=== PATIENT | female | born 1945 | race Caucasian/White ===

== ENCOUNTER 2016-10-24 16:39 | Inpatient (IN) | payer MEDICARE, OTHER ==
[2016-10-24] MEDS ORDERED: SODIUM CHLORIDE 0.9% 1,000 ML IV ONE (17:35)
--- NOTE | 2016-10-24 18:10 | XR ---
EXAMINATION TYPE: XR chest 2V DATE OF EXAM: 10/24/2016 6:07 PM COMPARISON: 06/24/2014 INDICATION: Mental status change unresponsive TECHNIQUE: Single frontal view of the chest is obtained. FINDINGS: The heart size is normal. The pulmonary vasculature is normal. The lungs are clear. IMPRESSION: 1. No acute pulmonary process.
[2016-10-24 18:17] LABS: ALT 21 U/L (9-52); AST 26 U/L (14-36); Alkaline Phosphatase 118 U/L (38-126); Anion Gap 11 mmol/L; Blood Urea Nitrogen 7 mg/dL (7-17); Calcium 8.4 mg/dL (8.4-10.2); Carbon Dioxide 26 mmol/L (22-30); Chloride 102 mmol/L (98-107); Glucose 233 mg/dL (74-99); Non-African American GFR(MDRD) >60 (>60 ml/min/1.73 sqM); Potassium 3.8 mmol/L (3.5-5.1); Sodium 139 mmol/L (137-145); Total Bilirubin 0.6 mg/dL (0.2-1.3); Total Protein 6.5 g/dL (6.3-8.2)
[2016-10-24 18:42] LABS: CH 32.2; CHCM 34.2; HDW 2.65; HGB 13.6 gm/dL (11.4-16.0); MCH 31.3 pg (25.0-35.0); MCHC 33.1 g/dL (31.0-37.0); MCV 94.7 fL (80.0-100.0); RBC 4.33 m/uL (3.80-5.40); WBC 7.9 k/uL (3.8-10.6); WBC (Perox) 7.19
[2016-10-24 19:29] LABS: Add Differential Manual Differential
[2016-10-24 19:31] LABS: Manual Review Performed; Nucleated Red Blood Cells 0 /100 WBC (0-0); RBC Morphology Normal; Total Cells Counted 100
[2016-10-24] MEDS ORDERED: LORazepam 2 MG/ML SYRINGE IV STA (20:55)
[2016-10-24] MEDS ORDERED: LORazepam 2 MG/ML SYRINGE IM STA (21:03)
[2016-10-24 22:06] LABS: Amorphous Sediment,Urine Rare /hpf; Appearance,Urine Cloudy (Clear); Bilirubin,Urine Negative (Negative); Glucose,Urine (UA) 3+ (Negative); Ketones,Urine Negative (Negative); Leukocyte Esterase,Urine Large (Negative); Mucus,Urine Rare /hpf; Nitrite,Urine Negative (Negative); Particle Count 8908; Protein,Urine Trace (Negative); Specific Gravity,Urine 1.011 (1.001-1.035); Squamous Epithelial Cell,Urine 6 /hpf (0-4); UA Billing (MACRO vs. MICRO) MICRO; Urobilinogen,Urine <2.0 mg/dL (<2.0); WBC,Urine >182 /hpf (0-5)
[2016-10-25] MEDS ORDERED: NALOXONE 0.4 MG/ML 1 ML VIAL IV PRN (00:37)
[2016-10-25] MEDS ORDERED: KETOROLAC 30 MG/ML 1 ML VIAL IVP PRN (00:37)
[2016-10-25] MEDS ORDERED: ONDANSETRON 4 MG/2 ML VIAL IVP PRN (00:37)
--- NOTE | 2016-10-25 00:42 | ED ---
General Adult HPI - General Chief complaint: Urogenital Stated complaint: UTI Source: EMS Mode of arrival: EMS Limitations: language barrier - History of Present Illness Initial comments: 31-year-old female with a history of persistent urinary tract infection on IV antibiotics presenting from halfway for evaluation of persistent urinary tract infection as well as psych evaluation. She was found to have a urinary tract infection and was placed on IV Zosyn but recently she's been acting out pulling at any IV line that she has and refusing to eat or drink or take her medications. She had a PICC line in her arm pulled that out about a week ago. During the last week she has pulled out the 2 peripheral IV lines that she has been placed but after pulling out the most recent one the home as well as the patient's family decided that she needed be evaluated for psych behavior. She had a previous admission to geriatric psych in the past for similar type behavior and after discharge had marketed improvement. Home care worker states that although she's been on the IV antibiotic she continues to have mild dysuria although she has no fevers chills nausea vomiting abdominal pain. - Related Data Home Medications Medication Instructions Recorded Confirmed Aspirin 81 mg PO DAILY 05/03/14 10/24/16 Carvedilol [Coreg] 3.125 mg PO BID 10/24/16 10/24/16 Cholecalciferol [Vitamin D3] 2,000 unit PO DAILY 10/24/16 10/24/16 Donepezil HCl [Aricept] 5 mg PO DAILY 10/24/16 10/24/16 Escitalopram [Lexapro] 20 mg PO DAILY 10/24/16 10/24/16 Esomeprazole Magnesium [NexIUM] 20 mg PO Q48H 10/24/16 10/24/16 Ferrous Sulfate [Feosol] 325 mg PO BID 10/24/16 10/24/16 Insulin Aspart [NovoLOG] 5 unit SQ AC-TID 10/24/16 10/24/16 Insulin Aspart [NovoLOG] See Protocol SQ AC-TID 10/24/16 10/24/16 Insulin Detemir [Levemir] 10 unit SQ QAM 10/24/16 10/24/16 Ketoconazole 2% Cream [Nizoral 2%] 1 applic TOPICAL DAILY 10/24/16 10/24/16 LORazepam [Ativan] 1 mg PO Q8H PRN 10/24/16 10/24/16 Levothyroxine Sodium [Synthroid] 100 mcg PO DAILY 10/24/16 10/24/16 Lisinopril [Zestril] 10 mg PO DAILY 10/24/16 10/24/16 Memantine [Namenda] 10 mg PO BID 10/24/16 10/24/16 Piperacillin-Tazobactam [Zosyn] 2.25 gm IVPB Q6HR 10/24/16 10/24/16 QUEtiapine [SEROquel] 50 mg PO HS 10/24/16 10/24/16 amLODIPine [Norvasc] 10 mg PO DAILY 10/24/16 10/24/16 Allergies Allergy/AdvReac Type Severity Reaction Status Date / Time shellfish derived AdvReac swelling & Verified 10/24/16 17:14 numbness Sulfa (Sulfonamide AdvReac Swelling Verified 10/24/16 17:14 Antibiotics) Review of Systems ROS Statement: Those systems with pertinent positive or pertinent negative responses have been documented in the HPI. ROS Other: All systems not noted in ROS Statement are negative. Constitutional: Denies: fever, chills, weakness, weight change Eyes: Denies: eye pain, eye discharge, vision change ENT: Denies: ear pain, throat pain Respiratory: Denies: cough, dyspnea Cardiovascular: Denies: chest pain, palpitations Endocrine: Denies: fatigue, polydipsia, polyuria Gastrointestinal: Denies: abdominal pain, nausea, vomiting, diarrhea, constipation, hematemesis, melena, hematochezia Genitourinary: Reports: dysuria. Denies: urgency, frequency, hematuria, discharge Musculoskeletal: Denies: back pain, arthralgia, myalgia Skin: Denies: rash, lesions Neurological: Denies: headache, weakness Psychiatric: Reports: depression (per family), other (decrease PO intake and refusing to take her meds). Denies: anxiety, homicidal thoughts, suicidal thoughts Hematological/Lymphatic: Denies: easy bleeding, easy bruising Past Medical History Past Medical History: Heart Failure, Diabetes Mellitus, GERD/Reflux Additional Past Medical History / Comment(s): CHF, Alzheimers, renal failure, hypothyroid History of Any Multi-Drug Resistant Organisms: None Reported Past Surgical History: Hysterectomy Additional Past Surgical History / Comment(s): thyroid, complete hysterectomy, cataract removal and lens implant Past Psychological History: Anxiety Smoking Status: Former smoker Past Alcohol Use History: None Reported Additional Past Alcohol Use History / Comment(s): Patient is single and . 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 Past Drug Use History: None Reported - Past Family History Father Family Medical History: Congestive Heart Failure (CHF) ( from heart failure at an unknown age) Mother Family Medical History: Congestive Heart Failure (CHF) ( at age 89 from heart failure) Brother(s) Family Medical History: Chest Pain / Angina (Patient has 2 brothers one from coronary artery disease, patient also has 2 sisters and one is from unknown cause.) Son(s) Additional Family Medical History / Comment(s): Patient has 2 daughters that are living. And one son who from hanging himself. General Exam Limitations: language barrier General appearance: alert, in distress (crying on the exam bed for no apparent reason upon approaching the bed) Head exam: Present: atraumatic, normocephalic, normal inspection Eye exam: Present: normal appearance, PERRL, EOMI. Absent: scleral icterus, conjunctival injection, periorbital swelling ENT exam: Present: normal exam, mucous membranes moist Neck exam: Present: normal inspection. Absent: tenderness, meningismus, lymphadenopathy Respiratory exam: Present: normal lung sounds bilaterally. Absent: respiratory distress, wheezes, rales, rhonchi, stridor Cardiovascular Exam: Present: regular rate, normal rhythm, normal heart sounds. Absent: systolic murmur, diastolic murmur, rubs, gallop, clicks GI/Abdominal exam: Present: soft, normal bowel sounds. Absent: distended, tenderness, guarding, rebound, rigid Rectal exam: Present: deferred Extremities exam: Present: normal inspection, full ROM, normal capillary refill. Absent: tenderness, pedal edema, joint swelling, calf tenderness Back exam: Present: normal inspection Neurological exam: Present: alert, oriented X3, CN II-XII intact Psychiatric exam: Present: normal affect, normal mood Skin exam: Present: warm, dry, intact, normal color. Absent: rash Course Vital Signs 05/06/17 05/06/17 05/07/17 16:51 19:46 00:45 Temperature 98.5 F 98.2 F Pulse Rate 69 82 66 Respiratory 16 18 18 Rate Blood Pressure 172/83 179/86 131/63 O2 Sat by Pulse 95 95 95 Oximetry EKG Findings - EKG Comments: EKG Findings:: Normal sinus rhythm with a ventricular rate of 76, THEO 118, QRS 80, QT/QTC 398/447. There is also voltage criteria for LVH in aVL. Medical Decision Making - Medical Decision Making 71-year-old female presented for evaluation of recurrent last persistent urinary tract infection as well as psych evaluation. She has been on IV Zosyn for the last 7 days and was prescribed for a 12 day course. She is also been acting out in the home pulling out her PICC line and numerous other IV access and refusing to eat or take her by mouth meds. On physical examination the patient is uncooperative and refusing to answer most questions. Family states that she has had previous admissions to geriatric psych which provided significant improvement. On physical examination there are no other abnormalities outside of the behavioral issues. We'll workup and up and have patient seen by psych. Labs revealed a hyperglycemia as well as a plasma lactic acid of 2.5. Urine revealed a continued urinary tract infection and her toxicology showed barbiturates and benzos in her urine. Patient was cleared medically for psych evaluation. Psychiatric see her and agreed patient needed to be admitted for geriatric psych. All the facilities in the area are full and have no available beds. It was agreed that she would be admitted for medical treatment of urinary tract infection and Zosyn will be continued until primary attending can evaluate further. Dr. Owens accepted the admission and requested consult with psych. Admission order placed and bed request submitted. - Lab Data Result diagrams: 10/24/16 17:00 10/24/16 17:00 Lab Results 10/24/16 10/24/16 10/24/16 Range/Units 17:00 17:00 17:00 WBC 7.9 (3.8-10.6) k/uL RBC 4.33 (3.80-5.40) m/uL Hgb 13.6 (11.4-16.0) gm/dL Hct 41.0 (34.0-46.0) % MCV 94.7 (80.0-100.0) fL MCH 31.3 (25.0-35.0) pg MCHC 33.1 (31.0-37.0) g/dL RDW 14.0 (11.5-15.5) % Plt Count 308 (150-450) k/uL Neutrophils % (Manual) 77.0 % Lymphocytes % (Manual) 16.0 % Monocytes % (Manual) 4.0 % Eosinophils % (Manual) 3.0 % Neutrophils # (Manual) 6.1 (1.3-7.7) k/uL Lymphocytes # (Manual) 1.3 (1.0-4.8) k/uL Monocytes # (Manual) 0.3 (0-1.0) k/uL Eosinophils # (Manual) 0.2 (0-0.7) k/uL Nucleated RBCs 0 (0-0) /100 WBC Manual Slide Review Performed RBC Morphology Normal Sodium 139 (137-145) mmol/L Potassium 3.8 (3.5-5.1) mmol/L Chloride 102 (98-107) mmol/L Carbon Dioxide 26 (22-30) mmol/L Anion Gap 11 mmol/L BUN 7 (7-17) mg/dL Creatinine 0.80 (0.52-1.04) mg/dL Est GFR (MDRD) Af Amer >60 (>60 ml/min/1.73 sqM) Est GFR (MDRD) Non-Af >60 (>60 ml/min/1.73 sqM) Glucose 233 H (74-99) mg/dL Plasma Lactic Acid [place] 2.5 H* (0.7-2.0) mmol/L Calcium 8.4 (8.4-10.2) mg/dL Total Bilirubin 0.6 (0.2-1.3) mg/dL AST 26 (14-36) U/L ALT 21 (9-52) U/L Alkaline Phosphatase 118 (38-126) U/L Troponin I (0.000-0.034) ng/mL NT-Pro-B Natriuret Pep pg/mL Total Protein 6.5 (6.3-8.2) g/dL Albumin 2.9 L (3.5-5.0) g/dL Lipase 23 (23-300) U/L Urine Color Urine Appearance (Clear) Urine pH (5.0-8.0) Ur Specific [place] (1.001-1.035) Urine Protein (Negative) Urine Glucose (UA) (Negative) Urine Ketones (Negative) Urine Blood (Negative) Urine Nitrite (Negative) Urine Bilirubin (Negative) Urine Urobilinogen (<2.0) mg/dL Ur Leukocyte Esterase (Negative) Urine WBC (0-5) /hpf Urine WBC Clumps (None) /hpf Ur Squamous Epith Cells (0-4) /hpf Amorphous Sediment (None) /hpf Urine Mucus (None) /hpf Urine Yeast (Budding) (None) /hpf Urine Opiates Screen (NotDetected) Ur Oxycodone Screen (NotDetected) Urine Methadone Screen (NotDetected) Ur Propoxyphene Screen (NotDetected) Ur Barbiturates Screen (NotDetected) U Tricyclic Antidepress (NotDetected) Ur Phencyclidine Scrn (NotDetected) Ur Amphetamines Screen (NotDetected) U Methamphetamines Scrn (NotDetected) U Benzodiazepines Scrn (NotDetected) Urine Cocaine Screen (NotDetected) U Marijuana (THC) Screen (NotDetected) Serum Alcohol mg/dL 10/24/16 10/24/16 10/24/16 Range/Units 17:00 17:00 19:15 WBC (3.8-10.6) k/uL RBC (3.80-5.40) m/uL Hgb (11.4-16.0) gm/dL Hct (34.0-46.0) % MCV (80.0-100.0) fL MCH (25.0-35.0) pg MCHC (31.0-37.0) g/dL RDW (11.5-15.5) % Plt Count (150-450) k/uL Neutrophils % (Manual) % Lymphocytes % (Manual) % Monocytes % (Manual) % Eosinophils % (Manual) % Neutrophils # (Manual) (1.3-7.7) k/uL Lymphocytes # (Manual) (1.0-4.8) k/uL Monocytes # (Manual) (0-1.0) k/uL Eosinophils # (Manual) (0-0.7) k/uL Nucleated RBCs (0-0) /100 WBC Manual Slide Review RBC Morphology Sodium (137-145) mmol/L Potassium (3.5-5.1) mmol/L Chloride (98-107) mmol/L Carbon Dioxide (22-30) mmol/L Anion Gap mmol/L BUN (7-17) mg/dL Creatinine (0.52-1.04) mg/dL Est GFR (MDRD) Af Amer (>60 ml/min/1.73 sqM) Est GFR (MDRD) Non-Af (>60 ml/min/1.73 sqM) Glucose (74-99) mg/dL Plasma Lactic Acid [place] (0.7-2.0) mmol/L Calcium (8.4-10.2) mg/dL Total Bilirubin (0.2-1.3) mg/dL AST (14-36) U/L ALT (9-52) U/L Alkaline Phosphatase (38-126) U/L Troponin I <0.012 (0.000-0.034) ng/mL NT-Pro-B Natriuret Pep 604 pg/mL Total Protein (6.3-8.2) g/dL Albumin (3.5-5.0) g/dL Lipase (23-300) U/L Urine Color Urine Appearance (Clear) Urine pH (5.0-8.0) Ur Specific [place] (1.001-1.035) Urine Protein (Negative) Urine Glucose (UA) (Negative) Urine Ketones (Negative) Urine Blood (Negative) Urine Nitrite (Negative) Urine Bilirubin (Negative) Urine Urobilinogen (<2.0) mg/dL Ur Leukocyte Esterase (Negative) Urine WBC (0-5) /hpf Urine WBC Clumps (None) /hpf Ur Squamous Epith Cells (0-4) /hpf Amorphous Sediment (None) /hpf Urine Mucus (None) /hpf Urine Yeast (Budding) (None) /hpf Urine Opiates Screen (NotDetected) Ur Oxycodone Screen (NotDetected) Urine Methadone Screen (NotDetected) Ur Propoxyphene Screen (NotDetected) Ur Barbiturates Screen (NotDetected) U Tricyclic Antidepress (NotDetected) Ur Phencyclidine Scrn (NotDetected) Ur Amphetamines Screen (NotDetected) U Methamphetamines Scrn (NotDetected) U Benzodiazepines Scrn (NotDetected) Urine Cocaine Screen (NotDetected) U Marijuana (THC) Screen (NotDetected) Serum Alcohol <10 mg/dL 10/24/16 Range/Units 21:50 WBC (3.8-10.6) k/uL RBC (3.80-5.40) m/uL Hgb (11.4-16.0) gm/dL Hct (34.0-46.0) % MCV (80.0-100.0) fL MCH (25.0-35.0) pg MCHC (31.0-37.0) g/dL RDW (11.5-15.5) % Plt Count (150-450) k/uL Neutrophils % (Manual) % Lymphocytes % (Manual) % Monocytes % (Manual) % Eosinophils % (Manual) % Neutrophils # (Manual) (1.3-7.7) k/uL Lymphocytes # (Manual) (1.0-4.8) k/uL Monocytes # (Manual) (0-1.0) k/uL Eosinophils # (Manual) (0-0.7) k/uL Nucleated RBCs (0-0) /100 WBC Manual Slide Review RBC Morphology Sodium (137-145) mmol/L Potassium (3.5-5.1) mmol/L Chloride (98-107) mmol/L Carbon Dioxide (22-30) mmol/L Anion Gap mmol/L BUN (7-17) mg/dL Creatinine (0.52-1.04) mg/dL Est GFR (MDRD) Af Amer (>60 ml/min/1.73 sqM) Est GFR (MDRD) Non-Af (>60 ml/min/1.73 sqM) Glucose (74-99) mg/dL Plasma Lactic Acid [place] (0.7-2.0) mmol/L Calcium (8.4-10.2) mg/dL Total Bilirubin (0.2-1.3) mg/dL AST (14-36) U/L ALT (9-52) U/L Alkaline Phosphatase (38-126) U/L Troponin I (0.000-0.034) ng/mL NT-Pro-B Natriuret Pep pg/mL Total Protein (6.3-8.2) g/dL Albumin (3.5-5.0) g/dL Lipase (23-300) U/L Urine Color Yellow Urine Appearance Cloudy H (Clear) Urine pH 6.0 (5.0-8.0) Ur Specific [place] 1.011 (1.001-1.035) Urine Protein Trace H (Negative) Urine Glucose (UA) 3+ H (Negative) Urine Ketones Negative (Negative) Urine Blood Trace H (Negative) Urine Nitrite Negative (Negative) Urine Bilirubin Negative (Negative) Urine Urobilinogen <2.0 (<2.0) mg/dL Ur Leukocyte Esterase Large H (Negative) Urine WBC >182 H (0-5) /hpf Urine WBC Clumps Many H (None) /hpf Ur Squamous Epith Cells 6 H (0-4) /hpf Amorphous Sediment Rare H (None) /hpf Urine Mucus Rare H (None) /hpf Urine Yeast (Budding) Many H (None) /hpf Urine Opiates Screen Not Detected (NotDetected) Ur Oxycodone Screen Not Detected (NotDetected) Urine Methadone Screen Not Detected (NotDetected) Ur Propoxyphene Screen Not Detected (NotDetected) Ur Barbiturates Screen Not Detected (NotDetected) U Tricyclic Antidepress Detected H (NotDetected) Ur Phencyclidine Scrn Not Detected (NotDetected) Ur Amphetamines Screen Not Detected (NotDetected) U Methamphetamines Scrn Not Detected (NotDetected) U Benzodiazepines Scrn Detected H (NotDetected) Urine Cocaine Screen Not Detected (NotDetected) U Marijuana (THC) Screen Not Detected (NotDetected) Serum Alcohol mg/dL Disposition Clinical Impression: Urinary tract infection, Evaluation by psychiatric service required Disposition: ADMITTED IP TO THIS HOSP Referrals: Spencer Menchaca DO [Primary Care Provider] - 1-2 days Decision to Admit Reason: Admit from EC Decision Date: 10/25/16 Decision Time: 00:42
[2016-10-25 02:44] VITALS: BMI 34.9
[2016-10-25] MEDS ORDERED: PIPERACILLIN TAZOBACTAM 2.25 GM IVPB SCH (06:00)
[2016-10-25] MEDS ORDERED: LEVOTHYROXINE 100 MCG TAB PO SCH (06:30)
[2016-10-25] MEDS: amLODIPine 10 MG TAB PO SCH (07:24)
[2016-10-25] MEDS: DONEPEZIL 5 MG TAB PO SCH (07:24)
[2016-10-25] MEDS: ESCITALOPRAM 20 MG TAB PO SCH (07:24)
[2016-10-25] MEDS: CARVEDILOL 3.125 MG TAB PO SCH ×2 (07:24→15:24)
[2016-10-25] MEDS: ASPIRIN 81 MG CHEW PO SCH (07:24)
[2016-10-25] MEDS: PANTOPRAZOLE 40 MG TABLET PO SCH (07:24)
[2016-10-25] MEDS: INSULIN DETEMIR 100 UNIT/ML 10 ML VIAL SQ SCH (07:24)
[2016-10-25 07:25] LABS: Glucose,Whole Blood 278 mg/dL (75-99)
[2016-10-25] MEDS: INSULIN LISPRO (humaLOG) 300 UNIT/3 ML VIAL SQ SCH ×3 (07:25→17:34)
[2016-10-25] MEDS: MEMANTINE 10 MG TAB PO SCH ×2 (07:25→20:48)
[2016-10-25] MEDS: LISINOPRIL 10 MG TAB PO SCH (07:25)
[2016-10-25] MEDS: PIPERACILLIN-TAZOBACTAM 3.375 GM in DEXTROSE/WATER 1 50ML.BAG IVPB SCH ×3 (07:45→23:09)
[2016-10-25] MEDS ORDERED: ENALAPRILAT 1.25 MG/ML 1 ML VIAL IVP PRN (09:36)
[2016-10-25] MEDS ORDERED: hydrALAZINE HCL 20 MG/ML 1 ML VIAL IVP PRN (09:37)
[2016-10-25] MEDS: LEVOTHYROXINE IVP 100 MCG/5 ML VIAL IV SCH (10:17)
[2016-10-25 11:53] LABS: Glucose,Whole Blood 245 mg/dL (75-99)
--- NOTE | 2016-10-25 12:30 | P.HPIM ---
History of Present Illness H&P Date: 10/25/16 Chief Complaint: Mental status changes, urinary tract infection This is a 71-year-old female patient of Dr. Guardado with past medical history of hypertension, diabetes mellitus type 2 insulin requiring, dementia,, hypothyroidism, gastroesophageal reflux disease, anxiety. Patient has been at [facility] in the past is currently living with her daughter and is on Zosyn 2.25 mg IV piggyback every 6 hours for urinary tract infection. Unknown who prescribed the Zosyn. Patient is confused and unable to give any history. Daughter is not here at the bedside. We will plan to contact daughter at a later time. According to the emergency center patient was sent in for a psychiatric evaluation she has been refusing to eat or drink or take her medications. She had a PICC line in her arm that she pulled out one week ago and also was pulled out 2 peripheral lines. She has had previous geriatric psychiatric admissions she has had no fever or chills, no nausea, vomiting or abdominal pain. She is continued with dysuria. Review of Systems ROS unobtainable: due to mental status All systems: negative Constitutional: Reports poor appetite, Denies chills, Denies fever Eyes: denies blurred vision, denies pain Ears, nose, mouth and throat: Denies headache, Denies sore throat Cardiovascular: Denies chest pain, Denies shortness of breath Respiratory: Denies cough Gastrointestinal: Denies abdominal pain, Denies diarrhea, Denies nausea, Denies vomiting Genitourinary: Reports dysuria, Denies hematuria Musculoskeletal: Denies myalgias Integumentary: Denies pruritus, Denies rash Neurological: Reports change in mentation, Reports confusion, Denies numbness, Denies weakness Psychiatric: Denies anxiety, Denies depression Endocrine: Denies fatigue, Denies weight change Past Medical History Past Medical History: Diabetes Mellitus, GERD/Reflux, Hyperlipidemia, Hypertension, Thyroid Disorder Additional Past Medical History / Comment(s): Alzheimers, renal failure, hypothyroid, multiple uti's with picc line placement History of Any Multi-Drug Resistant Organisms: None Reported Past Surgical History: Heart Catheterization, Hysterectomy Additional Past Surgical History / Comment(s): thyroidectomy, complete hysterectomy, cataract removal and lens implant Past Anesthesia/Blood Transfusion Reactions: No Reported Reaction Past Psychological History: Anxiety, Bipolar, Depression Additional Psychological History / Comment(s): previous admit to geriatric psych unit jun 2014 Smoking Status: Former smoker Past Alcohol Use History: None Reported Additional Past Alcohol Use History / Comment(s): Patient is single and . 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 Past Drug Use History: None Reported - Past Family History Father Family Medical History: Congestive Heart Failure (CHF) Mother Family Medical History: Congestive Heart Failure (CHF) Brother(s) Family Medical History: Chest Pain / Angina Son(s) Additional Family Medical History / Comment(s): Patient has 2 daughters that are living. And one son who from hanging himself. Medications and Allergies Home Medications Medication Instructions Recorded Confirmed Type Aspirin 81 mg PO DAILY 05/03/14 10/24/16 History Carvedilol [Coreg] 3.125 mg PO BID 10/24/16 10/24/16 History Cholecalciferol [Vitamin D3] 2,000 unit PO DAILY 10/24/16 10/24/16 History Donepezil HCl [Aricept] 5 mg PO DAILY 10/24/16 10/24/16 History Escitalopram [Lexapro] 20 mg PO DAILY 10/24/16 10/24/16 History Esomeprazole Magnesium [NexIUM] 20 mg PO Q48H 10/24/16 10/24/16 History Ferrous Sulfate [Feosol] 325 mg PO BID 10/24/16 10/24/16 History Insulin Aspart [NovoLOG] 5 unit SQ AC-TID 10/24/16 10/24/16 History Insulin Aspart [NovoLOG] See Protocol SQ AC-TID 10/24/16 10/24/16 History Insulin Detemir [Levemir] 10 unit SQ QAM 10/24/16 10/24/16 History Ketoconazole 2% Cream [Nizoral 2%] 1 applic TOPICAL DAILY 10/24/16 10/24/16 History LORazepam [Ativan] 1 mg PO Q8H PRN 10/24/16 10/24/16 History Levothyroxine Sodium [Synthroid] 100 mcg PO DAILY 10/24/16 10/24/16 History Lisinopril [Zestril] 10 mg PO DAILY 10/24/16 10/24/16 History Memantine [Namenda] 10 mg PO BID 10/24/16 10/24/16 History Piperacillin-Tazobactam [Zosyn] 2.25 gm IVPB Q6HR 10/24/16 10/24/16 History QUEtiapine [SEROquel] 50 mg PO HS 10/24/16 10/24/16 History amLODIPine [Norvasc] 10 mg PO DAILY 10/24/16 10/24/16 History Allergies Allergy/AdvReac Type Severity Reaction Status Date / Time shellfish derived AdvReac swelling & Verified 10/24/16 17:14 numbness Sulfa (Sulfonamide AdvReac Swelling Verified 10/24/16 17:14 Antibiotics) Physical Exam Vitals: Vital Signs Temp Pulse Pulse Resp BP BP Pulse Ox 10/25/16 07:00 97.7 F 70 17 164/80 96 10/25/16 02:17 98.1 F 72 18 122/58 94 L 10/25/16 00:45 98.2 F 66 18 131/63 95 Intake and Output 10/24/16 10/25/16 10/25/16 22:59 06:59 14:59 Other: Voiding Method Incontinent Incontinent # Voids 0 1 Weight 86.5 kg Gen: This is a 71-year-old female. She is laying in bed and appears to be in no acute distress. HEENT: Head is atraumatic, normocephalic. Pupils equal, round. Sclerae is anicteric. NECK: Supple. No JVD. No lymphadenopathy. No thyromegaly. LUNGS: Clear to auscultation. No wheezes or rhonchi. No intercostal retractions. HEART: Regular rate and rhythm. No murmur. ABDOMEN: Soft. Bowel sounds are present. No masses. No tenderness. EXTREMITIES: No pedal edema. No calf tenderness. NEUROLOGICAL: Patient is awake, and oriented to self, confused. Cranial nerves 2 through 12 are grossly intact. Results CBC & Chem 7: 10/24/16 17:00 10/24/16 17:00 Labs: Abnormal Lab Results - Last 24 Hours (Table) 10/25/16 Range/Units 07:22 POC Glucose (mg/dL) 278 H (75-99) mg/dL Thrombosis Risk Factor Assmnt - DVT/VTE Prophylaxis DVT/VTE Prophylaxis: Pharmacologic Prophylaxis ordered - Choose All That Apply Any of the Below Risk Factors Present?: Yes Each Factor Represents 1 point: Obesity (BMI >25) Other Risk Factors: Yes Each Risk Factor Represents 2 Points: Age 61-74 years Other congenital or acquired thrombophilia - If yes, enter type in comment: No Thrombosis Risk Factor Assessment Total Risk Factor Score: 3 Thrombosis Risk Factor Assessment Level: Moderate Risk Assessment and Plan Plan: 1. Metabolic encephalopathy due to urinary tract infection with noted lactic acidosis. Patient will be continued on Zosyn. Urine culture to be obtained. Culture to be obtained to rule out bacteremia contributing to her metabolic encephalopathy. Patient is unable to take oral medications so Vasotec and hydralazine added for blood pressure control and Synthroid changed to IV. 2. Urinary tract infection. Continue Zosyn. 3. History of heart failure, unknown type. No longer on Lasix and potassium. 4. Hypothyroidism. Continue Synthroid 50 g daily. 5. Vascular dementia with with possible behavioral issues and not eating and drinking. Continue Namenda 10 mg twice daily and Aricept 5 mg daily. Consult with psychiatry. 6. Gastroesophageal reflux disease and gastritis prophylaxis. Continue Protonix. 7. Diabetes mellitus type II insulin requiring. Continue Levemir 10 units at bedtime, Humalog 5 units 3 times daily with meals and Humalog scale before meals and at bedtime. 8. DVT prophylaxis. Patient started on heparin subcu. 9. Generalized debilitation. PT, OT and oncology social work consult requested. 10. Patient will be admitted for a minimum of 2 night/midnight stay. Impression and plan of care have been directed as dictated by the signing physician. Abiola Ramirez nurse practitioner acting as scribe for signing physician. EC: Dr. Spencer Menchaca Time with Patient: Greater than 30
[2016-10-25] MEDS: LORazepam 2 MG/ML SYRINGE IV PRN (15:57)
[2016-10-25 17:36] LABS: Glucose,Whole Blood 446 mg/dL (75-99)
[2016-10-25 20:46] LABS: Glucose,Whole Blood 317 mg/dL (75-99)
[2016-10-25] MEDS: LORazepam 1 MG TAB PO PRN (20:47)
[2016-10-25] MEDS: FERROUS SULFATE 325 MG TAB PO SCH (20:48)
[2016-10-25] MEDS: QUEtiapine 50 MG TAB PO SCH (20:48)
[2016-10-26] MEDS: LORazepam 2 MG/ML SYRINGE IV PRN (06:17)
--- NOTE | 2016-10-26 07:25 | CONS ---
DATE OF CONSULTATION: IDENTIFYING DATA: This is a 71-year-old female patient. HISTORY OF PRESENT ILLNESS: Ms. Brown is admitted to the inpatient medical floor at [facility] with mental status changes and UTI. Per chart history she was refusing to eat or drink or take medications. Per chart history recently pulled out a PICC line and pulled out 2 peripheral lines. She was admitted with UTI with lactic acidosis. When I ask the patient what brought her here to the hospital, she says she does not know. Regarding how she feels today she says good. She does seem to relay she slept last night. She does state she is not eating today and does not feel hungry. Her answers to questions are minimal and there is minimal speech. PSYCHIATRIC HISTORY: Per chart history there is a previous juan-psychiatric admission. When I asked patient about psychiatric history she does not answer. PSYCHIATRIC FAMILY HISTORY: None known at this time. MEDICAL HISTORY: Hypertension, diabetes mellitus type 2, dementia, hypothyroidism, gastroesophageal reflux disease. CURRENT MEDICATIONS: Norvasc, aspirin, Coreg, vitamin D3, Aricept, Vasotec, Lexapro 20 mg daily, Feosol, Apresoline, Levemir, Humalog, Toradol p.r.n., Synthroid, Zestril, Ativan p.r.n., Namenda, Narcan p.r.n., Zofran p.r.n., Protonix, piperacillin/tazobactam, Seroquel 50 mg at bedtime. DRUG AND ALCOHOL HISTORY: Patient denies. SOCIAL HISTORY: Per chart history. Lives with her daughter. When I asked her who she lives she does not answer. MENTAL STATUS EXAM: She is alert, appears distraught at a few points during the evaluation. Her affect overall is restricted. She talks minimally. She denies any visual or auditory hallucinations. She denies any thoughts of harm to self or others. Her mood is described as "I don't know". She is not oriented to place or date. Does not show any significant agitation. IMPRESSION: Likely delirium, likely major neurocognitive disorder, rule out any component of depression accompanying major neurocognitive disorder. PLAN: At this time will maintain current psychotropic medications, which include Lexapro 20 mg daily, Seroquel 50 mg at bedtime. She is on Ativan as needed. Will monitor for any agitated behavior or psychosis accompanying delirium/dementia. Continue to treat possible causes of delirium. We will need to see how she responds with medical treatment in terms of the delirium and then see if there is any criteria for any inpatient juan psychiatric treatment.
[2016-10-26 07:37] LABS: Glucose,Whole Blood 497 mg/dL (75-99)
[2016-10-26 07:37] LABS: Glucose,Whole Blood 476 mg/dL (75-99)
[2016-10-26] MEDS: LEVOTHYROXINE IVP 100 MCG/5 ML VIAL IV SCH (07:50)
[2016-10-26] MEDS: ESCITALOPRAM 20 MG TAB PO SCH (07:51)
[2016-10-26] MEDS: CARVEDILOL 3.125 MG TAB PO SCH ×2 (07:51→17:38)
[2016-10-26] MEDS: PIPERACILLIN-TAZOBACTAM 3.375 GM in DEXTROSE/WATER 1 50ML.BAG IVPB SCH ×3 (07:51→23:12)
[2016-10-26] MEDS: DONEPEZIL 5 MG TAB PO SCH (07:51)
[2016-10-26] MEDS: INSULIN DETEMIR 100 UNIT/ML 10 ML VIAL SQ SCH (07:51)
[2016-10-26] MEDS: INSULIN LISPRO (humaLOG) 300 UNIT/3 ML VIAL SQ SCH ×6 (07:51→21:46)
[2016-10-26] MEDS: LISINOPRIL 10 MG TAB PO SCH (07:52)
[2016-10-26] MEDS: amLODIPine 10 MG TAB PO SCH (07:52)
[2016-10-26] MEDS: MEMANTINE 10 MG TAB PO SCH ×2 (07:52→21:46)
[2016-10-26] MEDS: FERROUS SULFATE 325 MG TAB PO SCH ×2 (07:52→21:46)
[2016-10-26] MEDS: ASPIRIN 81 MG CHEW PO SCH (07:52)
--- NOTE | 2016-10-26 09:37 | P.CN ---
Psychiatric Consult - . Consult date: 10/26/16 Consult:: DATE OF SERVICE: [10/26/2016 IDENTIFYING DATA: This patient is a 71-year-old female who was admitted to the medical floor with UTI and mental status changes. HISTORY OF PRESENT ILLNESS: The patient presents with patient was admitted to the fourth floor [facility] with mental status changes and UTI. Per chart she was refusing to eat or drink anything and had pulled out several lines she was assessed by who diagnosed delirium. Seen today patient was lying in her bed, asleep. Woke up with calling of her name, smiled and went back to sleep. Woke her again she was able to keep her eyes partially open and answer minimally to questions. The patient has no idea where she is when offered different choices school confucianism or hospital she said no to the mall. She was unable to give the date. She was able to give her name. She mumbles her answers to all questions unintelligible.. PAST PSYCHIATRIC HISTORY: Per chart one Geriatric psych admission. : . ALLERGIES: Sulfa. CHEMICAL DEPENDENCY HISTORY: No known history. FAMILY PSYCHIATRIC HISTORY: No known history. MENTAL STATUS EXAM: Incomplete mental status exam due to patient's level of consciousness, awareness, cognition She is disoriented to place and time, only able to give her name. IMPRESSIONS: Reviewed chart. Patient continues to be confused, unable to answer questions. Delirium continues to be the most likely dx due to medical causes, i.e. UTI elevated glucose superimposed upon neurocognitive disorder, by record dementia. PLAN: Continue to treat all possible medical causes of delirium. If agitation occurs would recommend using low dose quetiapine 25mg in place of lorazepam that causes confusion in elderly and patients with nuerocognitive disorders. Will follow along with you, please call if any questions. 10/26/16 09:19 10/26/16 09:37
[2016-10-26 10:51] LABS: Anion Gap 11 mmol/L; Blood Urea Nitrogen 11 mg/dL (7-17); Calcium 8.3 mg/dL (8.4-10.2); Carbon Dioxide 25 mmol/L (22-30); Chloride 100 mmol/L (98-107); Glucose 374 mg/dL (74-99); Non-African American GFR(MDRD) >60 (>60 ml/min/1.73 sqM); Potassium 3.9 mmol/L (3.5-5.1); Sodium 136 mmol/L (137-145)
[2016-10-26] MEDS ORDERED: INSULIN LISPRO (humaLOG) 300 UNIT/3 ML VIAL SQ ONE (10:58)
[2016-10-26 11:24] LABS: Basophils # (A) 0.1 k/uL (0-0.2); Basophils % (A) 0 %; CH 31.5; CHCM 32.6; Eosinophils # (A) 0.2 k/uL (0-0.7); Eosinophils % (A) 1 %; HDW 2.49; HGB 13.1 gm/dL (11.4-16.0); Luc # (Auto) 0.11; Luc % (Auto) 1; Lymphocytes % (A) 8 %; MCH 31.8 pg (25.0-35.0); MCHC 32.8 g/dL (31.0-37.0); Mean Platelet Volume 7.8; Monocytes # (A) 0.5 k/uL (0-1.0); Monocytes % (A) 4 %; Neutrophils # (A) 11.1 k/uL (1.3-7.7); Neutrophils % (A) 85 %; RBC 4.12 m/uL (3.80-5.40); RDW 13.9 % (11.5-15.5); WBC (Perox) 13.66
[2016-10-26 11:51] LABS: Glucose,Whole Blood 291 mg/dL (75-99)
[2016-10-26] MEDS: CHOLECALCIFEROL 1,000 UNIT TAB PO SCH (12:44)
--- NOTE | 2016-10-26 13:51 | P.PN ---
Subjective This is a 71-year-old female patient of Dr. Menchaca'julianna with past medical history of hypertension, diabetes mellitus type 2 insulin requiring, dementia,, hypothyroidism, gastroesophageal reflux disease, anxiety. Patient has been at [facility] in the past is currently living with her daughter and is on Zosyn 2.25 mg IV piggyback every 6 hours for urinary tract infection. Unknown who prescribed the Zosyn. Patient is confused and unable to give any history. Daughter is not here at the bedside. We will plan to contact daughter at a later time. According to the emergency center patient was sent in for a psychiatric evaluation she has been refusing to eat or drink or take her medications. She had a PICC line in her arm that she pulled out one week ago and also was pulled out 2 peripheral lines. She has had previous geriatric psychiatric admissions she has had no fever or chills, no nausea, vomiting or abdominal pain. She is continued with dysuria. 10/26: Clarification from admission, patient has been residing at [facility] and was initially started on Zosyn on October 18 and received 3 doses but the patient pulled her IV out. She would not cooperate for PICC line placement. Urine culture to be obtained from senior care but apparently this was ESBL. Patient has not been eating since admission other than a fruit cup last night for supper. As not seen by psychiatry at the senior care. She has been seen by Dr. Khanna with recommendations for quetiapine 5 mg versus lorazepam for any confusion. Urine culture on this admission is showing contamination. She is continued on Zosyn IV piggyback. Mental status is not improved from yesterday. Objective - Vital Signs Vital signs: Vital Signs Temp 98.2 F 10/26/16 07:00 Pulse 74 10/26/16 07:00 Resp 18 10/26/16 07:00 BP 123/63 10/26/16 07:00 Pulse Ox 95 10/26/16 07:00 Intake & Output 10/25/16 10/26/16 10/26/16 18:59 06:59 18:59 Other: Voiding Method Incontinent Incontinent # Voids 2 4 1 - Exam Gen: This is a 71-year-old female. She is laying in bed and appears to be in no acute distress. HEENT: Head is atraumatic, normocephalic. Pupils equal, round. Sclerae is anicteric. NECK: Supple. No JVD. No lymphadenopathy. No thyromegaly. LUNGS: Clear to auscultation. No wheezes or rhonchi. No intercostal retractions. HEART: Regular rate and rhythm. No murmur. ABDOMEN: Soft. Bowel sounds are present. No masses. No tenderness. EXTREMITIES: No pedal edema. No calf tenderness. NEUROLOGICAL: Patient is awake, and oriented to self, confused. Cranial nerves 2 through 12 are grossly intact. - Labs CBC & Chem 7: 10/26/16 10:10/26/16 10:17 Labs: Abnormal Lab Results - Last 24 Hours (Table) 10/25/16 10/25/16 10/26/16 Range/Units 17:25 20:45 07:09 WBC (3.8-10.6) k/uL Neutrophils # (1.3-7.7) k/uL Sodium (137-145) mmol/L Glucose (74-99) mg/dL POC Glucose (mg/dL) 446 H 317 H 476 H (75-99) mg/dL Calcium (8.4-10.2) mg/dL 10/26/16 10/26/16 10/26/16 Range/Units 07:10 10:17 10:17 WBC 13.0 H (3.8-10.6) k/uL Neutrophils # 11.1 H (1.3-7.7) k/uL Sodium 136 L (137-145) mmol/L Glucose 374 H (74-99) mg/dL POC Glucose (mg/dL) 497 H (75-99) mg/dL Calcium 8.3 L (8.4-10.2) mg/dL 10/26/16 Range/Units 11:49 WBC (3.8-10.6) k/uL Neutrophils # (1.3-7.7) k/uL Sodium (137-145) mmol/L Glucose (74-99) mg/dL POC Glucose (mg/dL) 291 H (75-99) mg/dL Calcium (8.4-10.2) mg/dL Assessment and Plan Plan: 1. Metabolic encephalopathy due to urinary tract infection with noted lactic acidosis. Patient will be continued on Zosyn. Urine culture as above. Recent urine culture to be obtained from the senior care. Blood culture to be obtained to rule out bacteremia contributing to her metabolic encephalopathy. Patient is unable to take oral medications so Vasotec and hydralazine added for blood pressure control and Synthroid changed to IV. 2. Urinary tract infection. Continue Zosyn. 3. History of heart failure, unknown type. No longer on Lasix and potassium. 4. Hypothyroidism. Continue Synthroid 50 g daily. 5. Vascular dementia with with possible behavioral issues and not eating and drinking. Continue Namenda 10 mg twice daily and Aricept 5 mg daily. Consult with psychiatry. 6. Gastroesophageal reflux disease and gastritis prophylaxis. Continue Protonix. 7. Diabetes mellitus type II insulin requiring. Continue Levemir 10 units at bedtime, Humalog 5 units 3 times daily with meals and Humalog scale before meals and at bedtime. 8. DVT prophylaxis. Patient started on heparin subcu. 9. Generalized debilitation. PT, OT and social human services assistants consult requested. 10. His story of bipolar disorder, anxiety and dementia. Patient seen by psychiatry. Impression and plan of care have been directed as dictated by the signing physician. Abiola Ramirez nurse practitioner acting as scribe for signing physician.
[2016-10-26 14:10] LABS: Glucose,Whole Blood 278 mg/dL (75-99)
[2016-10-26 14:35] LABS: Hemoglobin A1C 9.5 % (4.2-6.1)
[2016-10-26 16:36] LABS: Glucose,Whole Blood 175 mg/dL (75-99)
[2016-10-26 20:51] LABS: Glucose,Whole Blood 151 mg/dL (75-99)
[2016-10-26] MEDS: LORazepam 1 MG TAB PO PRN (21:46)
[2016-10-26] MEDS: QUEtiapine 50 MG TAB PO SCH (21:46)
[2016-10-27 07:27] LABS: Glucose,Whole Blood 292 mg/dL (75-99)
[2016-10-27] MEDS: DONEPEZIL 5 MG TAB PO SCH (08:02)
[2016-10-27] MEDS: ESCITALOPRAM 20 MG TAB PO SCH (08:02)
[2016-10-27] MEDS: LISINOPRIL 10 MG TAB PO SCH (08:02)
[2016-10-27] MEDS: LEVOTHYROXINE IVP 100 MCG/5 ML VIAL IV SCH (08:02)
[2016-10-27] MEDS: amLODIPine 10 MG TAB PO SCH (08:02)
[2016-10-27] MEDS: FERROUS SULFATE 325 MG TAB PO SCH ×2 (08:02→22:37)
[2016-10-27] MEDS: PIPERACILLIN-TAZOBACTAM 3.375 GM in DEXTROSE/WATER 1 50ML.BAG IVPB SCH (08:02)
[2016-10-27] MEDS: CARVEDILOL 3.125 MG TAB PO SCH ×2 (08:02→18:17)
[2016-10-27] MEDS: MEMANTINE 10 MG TAB PO SCH ×2 (08:02→22:37)
[2016-10-27] MEDS: ASPIRIN 81 MG CHEW PO SCH (08:02)
[2016-10-27] MEDS: PANTOPRAZOLE 40 MG TABLET PO SCH (08:02)
[2016-10-27] MEDS: INSULIN DETEMIR 100 UNIT/ML 10 ML VIAL SQ SCH (08:03)
[2016-10-27] MEDS: INSULIN LISPRO (humaLOG) 300 UNIT/3 ML VIAL SQ SCH ×7 (08:03→22:38)
[2016-10-27 11:28] LABS: Glucose,Whole Blood 339 mg/dL (75-99)
[2016-10-27] MEDS ORDERED: INSULIN DETEMIR 100 UNIT/ML 10 ML VIAL SQ SCH (11:42)
--- NOTE | 2016-10-27 12:29 | P.PN ---
Subjective This is a 71-year-old female patient of Dr. Menchaca'julianna with past medical history of hypertension, diabetes mellitus type 2 insulin requiring, dementia,, hypothyroidism, gastroesophageal reflux disease, anxiety. Patient has been at [facility] in the past is currently living with her daughter and is on Zosyn 2.25 mg IV piggyback every 6 hours for urinary tract infection. Unknown who prescribed the Zosyn. Patient is confused and unable to give any history. Daughter is not here at the bedside. We will plan to contact daughter at a later time. According to the emergency center patient was sent in for a psychiatric evaluation she has been refusing to eat or drink or take her medications. She had a PICC line in her arm that she pulled out one week ago and also was pulled out 2 peripheral lines. She has had previous geriatric psychiatric admissions she has had no fever or chills, no nausea, vomiting or abdominal pain. She is continued with dysuria. 10/26: Clarification from admission, patient has been residing at [facility] and was initially started on Zosyn on October 18 and received 3 doses but the patient pulled her IV out. She would not cooperate for PICC line placement. Urine culture to be obtained from longterm but apparently this was ESBL. Patient has not been eating since admission other than a fruit cup last night for supper. As not seen by psychiatry at the longterm. She has been seen by Dr. Khanna with recommendations for quetiapine 5 mg versus lorazepam for any confusion. Urine culture on this admission is showing contamination. She is continued on Zosyn IV piggyback. Mental status is not improved from yesterday. 10/27 The patient has been taking medications and eating with her daughter's help today. It does not seem she's having difficulty swallowing but rather just a refusal to eat or take medications. This is most likely related to her underlying dementia. Psychiatry is following with no plans for any inpatient admission. Anticipate she will be ready for discharge tomorrow. Urine culture was obtained and shows Maria A greater than 100,000 colonies. Zosyn will be discontinued and patient will be started on Diflucan. Objective - Vital Signs Vital signs: Vital Signs Temp 98.6 F 10/27/16 07:00 Pulse 75 10/27/16 07:00 Resp 16 10/27/16 07:00 BP 116/69 05/09/17 07:00 Pulse Ox 94 L 10/27/16 07:00 Intake & Output 10/26/16 10/27/16 10/27/16 18:59 06:59 18:59 Weight 86.5 kg Other: Voiding Method Incontinent Incontinent Incontinent # Voids 1 1 1 # Bowel Movements 1 2 - Exam Gen: This is a 71-year-old female. She is laying in bed and appears to be in no acute distress. HEENT: Head is atraumatic, normocephalic. Pupils equal, round. Sclerae is anicteric. NECK: Supple. No JVD. No lymphadenopathy. No thyromegaly. LUNGS: Clear to auscultation. No wheezes or rhonchi. No intercostal retractions. HEART: Regular rate and rhythm. No murmur. ABDOMEN: Soft. Bowel sounds are present. No masses. No tenderness. EXTREMITIES: No pedal edema. No calf tenderness. NEUROLOGICAL: Patient is awake, and oriented to self, confused. Cranial nerves 2 through 12 are grossly intact. - Labs CBC & Chem 7: 10/26/16 10:17 10/26/16 10:17 Labs: Abnormal Lab Results - Last 24 Hours (Table) 10/26/16 10/26/16 10/26/16 Range/Units 10:17 13:49 16:34 POC Glucose (mg/dL) 278 H 175 H (75-99) mg/dL Hemoglobin A1c 9.5 H (4.2-6.1) % 10/26/16 10/27/16 10/27/16 Range/Units 20:49 07:19 11:23 POC Glucose (mg/dL) 151 H 292 H 339 H (75-99) mg/dL Hemoglobin A1c (4.2-6.1) % Microbiology - Last 24 Hours (Table) 10/25/16 12:43 Blood Culture - Preliminary Blood No Growth after 24 hours Assessment and Plan Plan: 1. Metabolic encephalopathy due to urinary tract infection with noted lactic acidosis. Urine culture shows Maria A, discontinue Zosyn and start Diflucan. 2. Maria A urinary tract infection. 3. History of heart failure, unknown type. No longer on Lasix and potassium. 4. Hypothyroidism. Continue Synthroid 50 g daily. 5. Vascular dementia with with possible behavioral issues and not eating and drinking. Continue Namenda 10 mg twice daily and Aricept 5 mg daily. Consult with psychiatry. 6. Gastroesophageal reflux disease and gastritis prophylaxis. Continue Protonix. 7. Diabetes mellitus type II insulin requiring. Continue Levemir 15 units at bedtime, Humalog 8 units 3 times daily with meals and Humalog scale before meals and at bedtime. 8. DVT prophylaxis. Patient started on heparin subcu. 9. Generalized debilitation. PT, OT and social media campaign manager consult requested. 10. His story of bipolar disorder, anxiety and dementia. Patient seen by psychiatry. The above impression and plan of care have been discussed and directed by signing physician. Maris Manning nurse practitioner acting as scribe for signing physician.
--- NOTE | 2016-10-27 13:46 | P.PN ---
Progress Note - Text DATE OF SERVICE: 10/27/2016 IDENTIFYING DATA: This patient is a 71-year-old [id number] with past medical history of hypertension, diabetes mellitus type 2 insulin requiring , dementia,, hypothyroidism, gastroesophageal reflux disease, anxiety. Admitted to medicine for refusal of eating/drinking pulling out IV lines. She has UTI and being treated. Daughter was not present at bedside. HISTORY OF PRESENT ILLNESS: The patient according to history has dementia, discussed with Dr García. She has not had any significant or sudden cognitive decline. She was not being seen at [facility] by psychiatry. Patients' daughter wants her to be admitted to a juan-psych unit. Today patient is unchanged from initial exam, lying in bed, calmly no agitation , eyes closed. Opens eye when spoken to but today instead of mumbling she refuses to answer and closes her eyes. No amount of coaxing could change her behavior. MENTAL STATUS EXAM: [Incomplete, patient nonverbal.. IMPRESSIONS: After discussion with Dr García, there is no acute changes from psychiatric perspective and no indication for inpatient psychiatric admission. She has Major Neurocognitive Disorder, (Dementia). Alzheimer's PLAN: . She can return to her [facility] when medically stable. My recommendations to avoid benzodiazepine class of medications and instead use low dose quetiapine (Seroquel) 25mg TID PRN agitation. She should also be seen by psychiatric service in [facility] if available.
[2016-10-27] MEDS: FLUCONAZOLE 100 MG TAB PO SCH (14:03)
[2016-10-27] MEDS: CHOLECALCIFEROL 1,000 UNIT TAB PO SCH (14:04)
[2016-10-27 17:03] LABS: Glucose,Whole Blood 223 mg/dL (75-99)
[2016-10-27 20:31] LABS: Glucose,Whole Blood 71 mg/dL (75-99)
[2016-10-27] MEDS: QUEtiapine 50 MG TAB PO SCH (22:38)
[2016-10-27 23:31] LABS: Glucose,Whole Blood 121 mg/dL (75-99)
[2016-10-28 00:28] VITALS: RESP 16
[2016-10-28 02:24] LABS: Glucose,Whole Blood 281 mg/dL (75-99)
[2016-10-28 07:24] LABS: Glucose,Whole Blood 387 mg/dL (75-99)
[2016-10-28 07:24] LABS: Glucose,Whole Blood 422 mg/dL (75-99)
[2016-10-28] MEDS: LEVOTHYROXINE IVP 100 MCG/5 ML VIAL IV SCH (07:48)
[2016-10-28] MEDS: INSULIN LISPRO (humaLOG) 300 UNIT/3 ML VIAL SQ SCH ×4 (07:48→13:28)
[2016-10-28] MEDS: LISINOPRIL 10 MG TAB PO SCH (08:50)
[2016-10-28] MEDS: amLODIPine 10 MG TAB PO SCH (08:50)
[2016-10-28] MEDS: MEMANTINE 10 MG TAB PO SCH (08:50)
[2016-10-28] MEDS: ASPIRIN 81 MG CHEW PO SCH (08:50)
[2016-10-28] MEDS: FLUCONAZOLE 100 MG TAB PO SCH (08:50)
[2016-10-28] MEDS: ESCITALOPRAM 20 MG TAB PO SCH (08:51)
[2016-10-28] MEDS: CARVEDILOL 3.125 MG TAB PO SCH (08:51)
[2016-10-28] MEDS: DONEPEZIL 5 MG TAB PO SCH (08:51)
[2016-10-28] MEDS: FERROUS SULFATE 325 MG TAB PO SCH (08:51)
[2016-10-28 09:06] LABS: Basophils # (A) 0.1 k/uL (0-0.2); Basophils % (A) 1 %; CH 31.2; CHCM 31.5; Eosinophils # (A) 0.3 k/uL (0-0.7); Eosinophils % (A) 3 %; HCT 43.1 % (34.0-46.0); HDW 2.48; HGB 13.5 gm/dL (11.4-16.0); Luc # (Auto) 0.12; Luc % (Auto) 1; Lymphocytes # (A) 1.4 k/uL (1.0-4.8); Lymphocytes % (A) 11 %; MCH 31.3 pg (25.0-35.0); MCHC 31.4 g/dL (31.0-37.0); MCV 99.6 fL (80.0-100.0); Macrocytosis Slight; Mean Platelet Volume 7.7; Monocytes # (A) 0.3 k/uL (0-1.0); Monocytes % (A) 3 %; Neutrophils # (A) 10.2 k/uL (1.3-7.7); Neutrophils % (A) 82 %; RBC 4.33 m/uL (3.80-5.40); WBC 12.4 k/uL (3.8-10.6); WBC (Perox) 12.46
[2016-10-28 09:39] LABS: ALT 22 U/L (9-52); AST 20 U/L (14-36); Alkaline Phosphatase 168 U/L (38-126); Anion Gap 16 mmol/L; Blood Urea Nitrogen 12 mg/dL (7-17); Calcium 8.5 mg/dL (8.4-10.2); Carbon Dioxide 20 mmol/L (22-30); Chloride 100 mmol/L (98-107); Non-African American GFR(MDRD) 59 (>60 ml/min/1.73 sqM); Potassium 4.3 mmol/L (3.5-5.1); Sodium 136 mmol/L (137-145); Total Bilirubin 0.7 mg/dL (0.2-1.3); Total Protein 6.4 g/dL (6.3-8.2)
[2016-10-28 09:53] LABS: Glucose 468 mg/dL (74-99)
--- NOTE | 2016-10-28 11:48 | P.DS ---
Providers Date of admission: 10/25/16 00:37 Expected date of discharge: 10/28/16 Attending physician: Vic Owens Consults: 10/28/16 11:28 Consult Physician Urgent Consulting Provider: Psychiatry - [facility] Psychiatry Consult Reason/Comments: RE-CONSULT PER PHYSICIAN REQUEST Do you want consulting provider notified?: Yes Primary care physician: Stated None Hospital Course: This is a 71-year-old female patient of (patient was been residing at [facility] for several years and not followed by Dr. Menchaca) with past medical history of hypertension, diabetes mellitus type 2 insulin requiring, dementia,, hypothyroidism, gastroesophageal reflux disease, anxiety. Patient has been at [facility] in the past is currently living with her daughter and is on Zosyn 2.25 mg IV piggyback every 6 hours for urinary tract infection. Unknown who prescribed the Zosyn. Patient is confused and unable to give any history. Daughter is not here at the bedside. We will plan to contact daughter at a later time. According to the emergency center patient was sent in for a psychiatric evaluation she has been refusing to eat or drink or take her medications. She had a PICC line in her arm that she pulled out one week ago and also was pulled out 2 peripheral lines. She has had previous geriatric psychiatric admissions she has had no fever or chills , no nausea, vomiting or abdominal pain. She is continued with dysuria. 10/26: Clarification from admission, patient has been residing at [facility] and was initially started on Zosyn on October 18 and received 3 doses but the patient pulled her IV out. She would not cooperate for PICC line placement. Urine culture to be obtained from [facility] but apparently this was ESBL. Patient has not been eating since admission other than a fruit cup last night for supper. As not seen by psychiatry at the [facility]. She has been seen by Dr. Khanna with recommendations for quetiapine 5 mg versus lorazepam for any confusion. Urine culture on this admission is showing contamination. She is continued on Zosyn IV piggyback. Mental status is not improved from yesterday. 10/27 The patient has been taking medications and eating with her daughter's help today. It does not seem she's having difficulty swallowing but rather just a refusal to eat or take medications. This is most likely related to her underlying dementia. Psychiatry is following with no plans for any inpatient admission. Anticipate she will be ready for discharge tomorrow. Urine culture was obtained and shows Maria A greater than 100,000 colonies. Zosyn will be discontinued and patient will be started on Diflucan. 10/28: Patient has been evaluated by speech therapy at the bedside with no noted problems with dysphagia, choking. Patient continues to refuse medications and food. Long discussion occurred with the patient's daughter. Daughter is adamant that the patient needs to go to [place] inpatient geriatric psychiatric unit. We are asking for repeat psych evaluation and input regarding transferred to geriatric psychiatric unit. At this time, patient is stable for discharge from a medical standpoint and will be discharged to extended care facility if psychiatric Center is not available. Discharge diagnoses: 1. Metabolic encephalopathy due to urinary tract infection with noted lactic acidosis. 2. Maria A urinary tract infection. 3. History of heart failure, unknown type. No longer on Lasix and potassium. 4. Hypothyroidism. Continue Synthroid 50 g daily. 5. Vascular dementia with with possible behavioral issues and not eating and drinking. 6. Gastroesophageal reflux disease 7. Diabetes mellitus type II insulin requiring. 8. Generalized debilitation. 9. History of bipolar disorder, anxiety and dementia. Impression and plan of care have been directed as dictated by the signing physician. Abiola Ramirez nurse practitioner acting as scribe for signing physician. Patient Condition at Discharge: Fair Plan - Discharge Summary New Discharge Prescriptions: LORazepam [Ativan] 1 mg PO Q8H PRN #90 tablet PRN Reason: Anxiety Discharge Medication List Aspirin 81 mg PO DAILY 05/03/14 [History] Carvedilol [Coreg] 3.125 mg PO BID 10/24/16 [History] Cholecalciferol [Vitamin D3] 2,000 unit PO DAILY 10/24/16 [History] Donepezil HCl [Aricept] 5 mg PO DAILY 10/24/16 [History] Escitalopram [Lexapro] 20 mg PO DAILY 10/24/16 [History] Esomeprazole Magnesium [NexIUM] 20 mg PO Q48H 10/24/16 [History] Ferrous Sulfate [Iron (65 MG Elemental)] 325 mg PO BID 10/24/16 [History] Insulin Aspart [NovoLOG] 5 unit SQ AC-TID 10/24/16 [History] Insulin Aspart [NovoLOG] See Protocol SQ AC-TID 10/24/16 [History] Insulin Detemir [Levemir] 10 unit SQ QAM 10/24/16 [History] Ketoconazole 2% Cream [Nizoral 2%] 1 applic TOPICAL DAILY 10/24/16 [History] Levothyroxine Sodium [Synthroid] 100 mcg PO DAILY 10/24/16 [History] Lisinopril [Zestril] 10 mg PO DAILY 10/24/16 [History] Memantine [Namenda] 10 mg PO BID 10/24/16 [History] QUEtiapine [SEROquel] 50 mg PO HS 10/24/16 [History] amLODIPine [Norvasc] 10 mg PO DAILY 10/24/16 [History] Fluconazole [Diflucan] 200 mg PO DAILY #13 tab 10/28/16 [Rx] LORazepam [Ativan] 1 mg PO Q8H PRN #90 tablet 10/28/16 [Rx] Discharge Disposition: TRANSFER TO SNF/ECF
[2016-10-28 12:02] LABS: Glucose,Whole Blood 334 mg/dL (75-99)
[2016-10-28] MEDS: CHOLECALCIFEROL 1,000 UNIT TAB PO SCH (13:27)
--- NOTE | 2016-10-28 13:49 | P.CN ---
Psychiatric Consult - . Consult date: 10/28/16 Consult:: 10/28/16 13:27 Asked to re-evaluate. IDENTIFYING DATA: Patient is a 71-year-old [id number] with past medical history of hypertension, diabetes mellitus type 2 insulin requiring, dementia,, hypothyroidism, gastroesophageal reflux disease, anxiety. Admitted to medicine for refusal of eating/drinking pulling out IV lines. HISTORY OF PRESENT ILLNESS: Asked to reevaluate patient by family, daughter who wants her to be admitted to a psychiatric unit. Patient has dementia, had some behavior of pulling IV lines out, and brought to hospital. Diagnosed with delirium due to UTI, lactic acidosis and subsequently treated. She is now ready for discharge. As stated yesterday, patient has dementia, she has not had any significant or sudden change in her cognition. She has dementia which is a progressive disease. With each medical illness patients frequently do have deterioration. Today patient was more responsive than yesterday, she was awake, watching TV, she did not close her eyes when I greeted her. She answered questions with no. MSE: Answered when name called, unable to give date, or location, no information , but when asked if she was in a yarsani, school, hospital she said no to all. Asked if depressed--no, asked if suicidal---no. She had good eye contact today versus yesterday when she would barely open her eyes. IMPRESSIONS: Again without clear deterioration or acute changes from psychiatric condition, no indication for inpatient psychiatric admission. She has Major Neurocognitive Disorder, (Dementia). Vascular PLAN: . She can return to her halfway when medically stable. My recommendation is to avoid benzodiazepine class of medications and instead use low dose quetiapine (Seroquel) 25mg TID. She should also be seen by psychiatric service in halfway if available. If family unhappy with recommendation, her visual lead who knows her baseline, would be the appropriate professional to recommend inpatient.
[2016-10-28 15:19] VITALS: BP 159/82; PULSE 78; TEMP 98.2
== END 2016-10-28 17:05 | DRG 757 ==
LOC: EC 16:39 → 4MS4W 10-25 00:37
PROVIDERS: ADMIT Internal Medicine Geriatric Medicine; ATTEND Internal Medicine Geriatric Medicine
DX: B37.49 Other urogenital candidiasis (principal); G93.41 Metabolic encephalopathy; E87.2 Acidosis; F01.51 Vascular dementia, unspecified severity, with behavioral disturbance; G30.9 Alzheimer's disease, unspecified; F02.81 Dementia in other diseases classified elsewhere, unspecified severity, with behavioral disturbance; F05 Delirium due to known physiological condition; E11.65 Type 2 diabetes mellitus with hyperglycemia; I10 Essential (primary) hypertension; R63.3 Feeding difficulties; R32 Unspecified urinary incontinence; E78.5 Hyperlipidemia, unspecified; F31.9 Bipolar disorder, unspecified; E89.0 Postprocedural hypothyroidism; F41.9 Anxiety disorder, unspecified; K21.9 Gastro-esophageal reflux disease without esophagitis; Z82.49 Family history of ischemic heart disease and other diseases of the circulatory system; Z79.82 Long term (current) use of aspirin; Z79.4 Long term (current) use of insulin; Z79.899 Other long term (current) drug therapy; Z87.440 Personal history of urinary (tract) infections; Z87.891 Personal history of nicotine dependence; Z88.2 Allergy status to sulfonamides; Z87.448 Personal history of other diseases of urinary system; Z91.013 Allergy to seafood; Z71.3 Dietary counseling and surveillance; Z98.49 Cataract extraction status, unspecified eye; Z96.1 Presence of intraocular lens; Z90.710 Acquired absence of both cervix and uterus; Z86.79 Personal history of other diseases of the circulatory system
CPT/HCPCS: 36415; 51701; 71020; 80048; 80053; 80306; 80320; 81001; 83036; 83605; 83690; 83880; 84484; 85025; 87040; 87086; 93005; 96360; 96361; 96372; 99285